=== PATIENT | male | born 2005 | race Caucasian/White ===

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

== ENCOUNTER 2024-01-12 08:28 | Day surgery (SDC) | payer BC, OTHER ==
[2024-01-11 09:19] VITALS: BMI 35.8
[~2024-01-12 08:28] MED LIST changes: -DEXAMETHASONE SOD PHOSPHATE 4 MG/ML 1 ML VIAL IV ONE; +HYDROmorphone 0.5 MG/0.5 ML SYRINGE IVP PRN; -KETAMINE 10 MG/ML 20 ML VIAL ONE; -LACTATED RINGERS 1,000 ML IV ONE; -LIDOCAINE 1% (10MG/ML) FOR IV START INTRADERMA ONE; +LIDOCAINE 1% (10MG/ML) FOR IV START INTRADERMA PRN; -LIDOCAINE 1% INJ 10MG/ML (20 ML MDV) ONE; -LIDOCAINE 1%-EPI 1:100,000 20 ML VIAL SQ ONE; +MIDAZOLAM 2 MG/2 ML VIAL IV PRN; -MIDAZOLAM 2 MG/2 ML VIAL ONE; -ONDANSETRON 4 MG/2 ML VIAL IVP ONE; -ONDANSETRON 4 MG/2 ML VIAL ONE; -PROPOFOL 10 MG/ML 20 ML VIAL IV ONE; -Pre Op ABX Message 1 EACH MISC MISCELLANE ONE; +fentaNYL (PF) 50 MCG/ML 2 ML AMP IVP PRN; -fentaNYL (PF) 50 MCG/ML 2 ML AMP ONE
[2024-01-12] MEDS: IV FLUID CONTINUATION 1,000 ML IV ONE (09:01)
[2024-01-12] MEDS: ONDANSETRON 4 MG/2 ML VIAL IVP ONE (09:13)
[2024-01-12] MEDS: DEXAMETHASONE SOD PHOSPHATE 4 MG/ML 1 ML VIAL IV ONE (09:13)
[2024-01-12] MEDS: LACTATED RINGERS 1,000 ML IV SCH (09:13)
[2024-01-12] MEDS: metroNIDAZOLE-NS PMX 500 MG in SALINE 1 100ML.BAG IVPB PRN (09:14)
[2024-01-12] MEDS: HEPARIN SODIUM,PORCINE 5,000 UNIT/ML 1 ML VIAL SQ STA (09:24)
[2024-01-12] MEDS ORDERED: LIDOCAINE 1% INJ 10MG/ML (20 ML MDV) ONE (09:33)
[2024-01-12] MEDS ORDERED: fentaNYL (PF) 50 MCG/ML 2 ML AMP ONE (09:33)
[2024-01-12] MEDS ORDERED: KETOROLAC 15 MG/ML 1 ML VIAL ONE (09:33)
[2024-01-12] MEDS ORDERED: PROPOFOL 10 MG/ML 20 ML VIAL IV ONE (09:33)
[2024-01-12] MEDS ORDERED: KETAMINE HCL IN 0.9 % NACL 50 MG/5 ML SYRINGE ONE (09:33)
[2024-01-12] MEDS ORDERED: MIDAZOLAM 2 MG/2 ML VIAL ONE (09:33)
[2024-01-12] MEDS ORDERED: SUCCINYLCHOLINE CHLORIDE 200 MG/10 ML VIAL IV ONE (09:33)
[2024-01-12 11:02] VITALS: TEMP 97.3
[2024-01-12 11:03] VITALS: RESP 16
[2024-01-12] MEDS: HYDROcodone/APAP 5-325MG 1 EACH TAB PO PRN (12:43)
[2024-01-12 15:43] VITALS: BP 110/71; PULSE 74
--- NOTE | 2024-01-12 22:08 | P.OP ---
Date of Procedure: 01/12/24 Preoperative Diagnosis: pilonidal cyst Postoperative Diagnosis: pilonidal cyst Procedure(s) Performed: and pilonidal cystectomy Anesthesia: BERTRAND Surgeon: Leonard Pardo Pathology: other (pilonidal cyst) Condition: stable Disposition: PACU Indications for Procedure: pilonidal cyst Operative Findings: multiple cysts cody of hair Description of Procedure: the patient was brought to the operating suite where he was cleaned and draped in sterile fashion and a timeout was performed. A #15 blade was then used to make an ellipse excision of the pilonidal cyst electrocautery was then used to dissect circumferentially down to the presacral fascia. Once freed up in all size this was amputated. The final measurement was 5 x 5 x 3 cm. A hemostatic, was performed and no bleeding was observed. This was irrigated with saline. This then concluded the case. We then used a Kerlix packing with an ABD on top. The patient tolerated the procedure well and was then transported to PACU in stable condition
== END 2024-01-12 16:26 | disposition home or self-care (01) ==
LOC: OR 08:28
PROVIDERS: ATTEND Surgery
DX: L05.91 Pilonidal cyst without abscess (principal); E66.9 Obesity, unspecified; Z79.899 Other long term (current) drug therapy; Z98.890 Other specified postprocedural states
CPT/HCPCS: 11771; J1644; J1100; J0690; J2405; J1836; 88304